=== PATIENT | male | born 1950 | race Two or more races ===

== ENCOUNTER 2021-01-26 13:16 | Inpatient (IN) | payer OTHER ==
[2021-01-26] MEDS ORDERED: ACETAMINOPHEN 1000 MG/100 ML VIAL (NON FORMULARY) IVPB ONE (13:43)
[2021-01-26] MEDS ORDERED: ACETAMINOPHEN INJECTION 100 ML IVPB ONE (14:27)
[2021-01-26 14:35] LABS: BASO % 0.2 % (0-2.0); EOS % 3.3 % (0-4.5); HEMATOCRIT 26.5 % (35.4-49); HEMOGLOBIN 8.5 GM/dL (11.7-16.9); LYMPH % 7.7 % (8-40); MCH 28.5 pg (25.7-33.7); MEAN CELL VOLUME 89.1 fl (80-96); MEAN PLT VOLUME 9.4 fl (7.5-11.1); MONO % 7.7 % (3.8-10.2); NEUT % 81.1 % (42.8-82.8); PLATELET COUNT 156 K/MM3 (134-434); RBC 2.98 M/mm3 (4.00-5.60); RDW 17.9 % (11.9-15.9); WHITE BLOOD COUNT 6.8 K/mm3 (4.0-10.0)
[2021-01-26 14:42] LABS: INR 1.12 (0.83-1.09); POTASSIUM 3.9 mmol/L (3.5-5.1); PROTHROMBIN TIME (PATIENT) 13.5 SEC (9.7-13.0)
[2021-01-26 14:44] LABS: ALBUMIN 2.6 g/dl (3.4-5.0); BLOOD UREA NITROGEN 47.7 mg/dL (7-18); CALCIUM 9.6 mg/dL (8.5-10.1)
[2021-01-26 14:45] LABS: ACTIVATED PTT 26.2 SECONDS (25.2-36.5)
[2021-01-26 14:49] LABS: BILIRUBIN,TOTAL 0.9 mg/dL (0.2-1); TOT PROT 6.2 g/dl (6.4-8.2)
[2021-01-26] MEDS ORDERED: ACETAMINOPHEN 650 MG/20.3 ML ORAL SOLUTION (CUPS) PO PRN (22:39)
[2021-01-27] MEDS ORDERED: POLYETHYLENE GLYCOL 3350 119 GM BTL GT PRN (01:07)
[2021-01-27] MEDS: ACETAMINOPHEN 650 MG/20.3 ML ORAL SOLUTION (CUPS) GT PRN (03:28)
[2021-01-27] MEDS: MIDODRINE HCL 5 MG TABLET GT SCH ×3 (06:10→22:44)
[2021-01-27] MEDS: BUDESONIDE 0.5 MG/2 ML INH SUSP VIAL NEB SCH (09:00)
[2021-01-27 09:35] LABS: BASO % 0.4 % (0-2.0); EOS % 4.4 % (0-4.5); HEMATOCRIT 23.8 % (35.4-49); MCH 29.4 pg (25.7-33.7); MCHC 33.5 g/dl (32.0-35.9); MEAN PLT VOLUME 9.6 fl (7.5-11.1); MONO % 8.3 % (3.8-10.2); NEUT % 76.9 % (42.8-82.8); PLATELET COUNT 145 K/MM3 (134-434); RBC 2.71 M/mm3 (4.00-5.60); RDW 17.8 % (11.9-15.9); WHITE BLOOD COUNT 5.5 K/mm3 (4.0-10.0)
[2021-01-27] MEDS ORDERED: ZINC SULFATE 220 MG CAPSULE (FP) GT SCH (10:00)
[2021-01-27] MEDS: ASPIRIN 81 MG CHEWABLE TABLETS GT SCH (11:20)
[2021-01-27 11:37] LABS: POTASSIUM 3.7 mmol/L (3.5-5.1)
[2021-01-27 11:44] LABS: CALCIUM 8.7 mg/dL (8.5-10.1)
[2021-01-27 11:45] LABS: ALBUMIN 2.3 g/dl (3.4-5.0); BLOOD UREA NITROGEN 54.7 mg/dL (7-18)
[2021-01-27 11:48] LABS: CREATININE 1.2 mg/dL (0.55-1.3)
[2021-01-27 11:49] LABS: TOT PROT 5.8 g/dl (6.4-8.2)
[2021-01-27] MEDS: METOPROLOL TARTRATE 25 MG TABLET (FP) GT SCH ×3 (11:54→23:06)
[2021-01-27] MEDS: FERROUS SO4 300 MG/5 ML ORAL SOLN UNIT DOSE CUPS GT SCH ×2 (11:58→22:42)
[2021-01-27] MEDS: TAMSULOSIN HCL 0.4 MG CAP NR SCH ×2 (11:59→12:06)
[2021-01-27] MEDS: Lacosamide 50 MG/5 ML ORAL SOLUTION UNIT CUPS GT SCH ×2 (12:02→22:43)
[2021-01-27] MEDS: ZINC SULFATE 220 MG CAPSULE (FP) GT SCH (12:15)
[2021-01-27] MEDS ORDERED: PATIENT'S OWN MEDICATION (NON-FORMULARY) (Carboxymethylcellulose Sodium [Refresh Plus] 1 E OP SCH (13:00)
[2021-01-27] MEDS ORDERED: guaiFENesin 200 MG/10 ML 10 ML UNIT-DOSE CUPS GT SCH (14:00)
[2021-01-27] MEDS ORDERED: SODIUM CHLORIDE 250 ML IV PRN (15:03)
[2021-01-27] MEDS: DOXAZOSIN MESYLATE 1 MG TABLET GT SCH (15:59)
[2021-01-27] MEDS: ALBUMIN HUMAN 25% 12.5 GM/50 ML VIAL IVPB SCH ×4 (16:00→17:30)
[2021-01-27] MEDS: guaiFENesin 200 MG/10 ML 10 ML UNIT-DOSE CUPS GT SCH ×2 (18:13→22:42)
[2021-01-27] MEDS: MINERAL OIL/PETROLATUM,WHITE 3.5 GM TUBE OU SCH ×2 (18:13→22:45)
[2021-01-27] MEDS ORDERED: LACOSAMIDE 200 MG GT SCH (22:00)
[2021-01-27] MEDS ORDERED: PT OWN MED DRAWER 7, Y5N ONE (22:38)
[2021-01-27] MEDS: ATORVASTATIN CA 80 MG TABLET (FP) GT SCH (22:44)
[2021-01-27] MEDS: SENNOSIDES 8.8 MG/5 ML BULK BOTTLE PO SCH (22:46)
[2021-01-27] MEDS: FAMOTIDINE 40 MG/5 ML ORAL SUSPENSION NR SCH (22:46)
[2021-01-28] MEDS: BUDESONIDE 0.5 MG/2 ML INH SUSP VIAL NEB SCH ×3 (02:20→22:00)
[2021-01-28] MEDS: MINERAL OIL/PETROLATUM,WHITE 3.5 GM TUBE OU SCH ×4 (04:13→23:16)
[2021-01-28] MEDS: ACETAMINOPHEN 650 MG/20.3 ML ORAL SOLUTION (CUPS) GT PRN (04:13)
[2021-01-28] MEDS: MIDODRINE HCL 5 MG TABLET GT SCH ×3 (05:44→23:17)
[2021-01-28] MEDS: METOPROLOL TARTRATE 25 MG TABLET (FP) GT SCH ×2 (09:31→23:17)
[2021-01-28] MEDS ORDERED: SODIUM CHLORIDE 250 ML IV STA (10:18)
[2021-01-28] MEDS: DOXAZOSIN MESYLATE 1 MG TABLET GT SCH ×2 (10:25→23:19)
[2021-01-28] MEDS: ZINC SULFATE 220 MG CAPSULE (FP) GT SCH (11:37)
[2021-01-28] MEDS: ASPIRIN 81 MG CHEWABLE TABLETS GT SCH (11:37)
[2021-01-28] MEDS: Lacosamide 50 MG/5 ML ORAL SOLUTION UNIT CUPS GT SCH ×2 (11:37→23:17)
[2021-01-28] MEDS: FERROUS SO4 300 MG/5 ML ORAL SOLN UNIT DOSE CUPS GT SCH ×2 (11:38→23:19)
[2021-01-28] MEDS: COLLAGENASE CLOSTRIDIUM HIST. 30 GRAMS TUBE TP SCH (11:46)
[2021-01-28] MEDS: guaiFENesin 200 MG/10 ML 10 ML UNIT-DOSE CUPS GT SCH (11:47)
[2021-01-28 12:56] LABS: HEMATOCRIT 24.4 % (35.4-49); HEMOGLOBIN 8.3 GM/dL (11.7-16.9); MCH 29.3 pg (25.7-33.7); MCHC 33.9 g/dl (32.0-35.9); MEAN CELL VOLUME 86.4 fl (80-96); MEAN PLT VOLUME 9.1 fl (7.5-11.1); PLATELET COUNT 146 K/MM3 (134-434); RBC 2.83 M/mm3 (4.00-5.60); RDW 17.9 % (11.9-15.9); WHITE BLOOD COUNT 5.8 K/mm3 (4.0-10.0)
[2021-01-28 13:20] LABS: POTASSIUM 3.5 mmol/L (3.5-5.1)
[2021-01-28 13:23] LABS: CALCIUM 8.9 mg/dL (8.5-10.1)
[2021-01-28 13:24] LABS: BLOOD UREA NITROGEN 37.5 mg/dL (7-18)
[2021-01-28] MEDS: FAMOTIDINE 40 MG/5 ML ORAL SUSPENSION NR SCH ×2 (14:15→23:18)
[2021-01-28] MEDS ORDERED: PT OWN MED DRAWER 7, Y5N ONE (23:15)
[2021-01-28] MEDS: ATORVASTATIN CA 80 MG TABLET (FP) GT SCH (23:17)
[2021-01-28] MEDS: SENNOSIDES 8.8 MG/5 ML BULK BOTTLE PO SCH (23:18)
[2021-01-29] MEDS: ACETAMINOPHEN 650 MG/20.3 ML ORAL SOLUTION (CUPS) GT PRN (03:32)
[2021-01-29] MEDS: MINERAL OIL/PETROLATUM,WHITE 3.5 GM TUBE OU SCH ×4 (03:33→22:53)
[2021-01-29] MEDS: MIDODRINE HCL 5 MG TABLET GT SCH ×3 (05:13→22:54)
[2021-01-29 08:57] LABS: BASO % 0.4 % (0-2.0); EOS % 3.7 % (0-4.5); HEMOGLOBIN 8.1 GM/dL (11.7-16.9); LYMPH % 12.2 % (8-40); MCH 29.5 pg (25.7-33.7); MCHC 33.7 g/dl (32.0-35.9); MEAN CELL VOLUME 87.6 fl (80-96); MEAN PLT VOLUME 9.8 fl (7.5-11.1); MONO % 10.8 % (3.8-10.2); NEUT % 72.9 % (42.8-82.8); PLATELET COUNT 133 K/MM3 (134-434); RBC 2.74 M/mm3 (4.00-5.60); RDW 17.5 % (11.9-15.9); WHITE BLOOD COUNT 5.8 K/mm3 (4.0-10.0)
[2021-01-29 09:23] LABS: POTASSIUM 3.5 mmol/L (3.5-5.1)
[2021-01-29 09:26] LABS: ALBUMIN 2.1 g/dl (3.4-5.0); BLOOD UREA NITROGEN 47.3 mg/dL (7-18); CALCIUM 8.8 mg/dL (8.5-10.1)
[2021-01-29 09:27] LABS: MAGNESIUM 2.1 mg/dL (1.8-2.4)
[2021-01-29 09:30] LABS: CREATININE 1.3 mg/dL (0.55-1.3); PHOSPHOROUS 3.3 mg/dL (2.5-4.9)
[2021-01-29 09:31] LABS: TOT PROT 5.7 g/dl (6.4-8.2)
[2021-01-29] MEDS ORDERED: FERROUS SULFATE 220 MG/5 ML ELIXIR GT SCH ×2 (10:00)
[2021-01-29] MEDS: BUDESONIDE 0.5 MG/2 ML INH SUSP VIAL NEB SCH ×2 (10:19→21:59)
[2021-01-29] MEDS ORDERED: INSULIN SLIDING SCALE (NOVOLOG) 1 VIAL SQ SCH ×2 (11:00)
[2021-01-29] MEDS: FERROUS SULFATE 220 MG/5 ML ELIXIR GT SCH ×2 (11:07→22:53)
[2021-01-29] MEDS ORDERED: PT OWN MED DRAWER 7, Y5N ONE ×2 (11:13→22:46)
[2021-01-29] MEDS: Lacosamide 50 MG/5 ML ORAL SOLUTION UNIT CUPS GT SCH ×2 (11:15→22:52)
[2021-01-29] MEDS: DOXAZOSIN MESYLATE 1 MG TABLET GT SCH ×2 (11:15→15:02)
[2021-01-29] MEDS: ASPIRIN 81 MG CHEWABLE TABLETS GT SCH (11:15)
[2021-01-29] MEDS: ZINC SULFATE 220 MG CAPSULE (FP) GT SCH (11:17)
[2021-01-29] MEDS: FAMOTIDINE 40 MG/5 ML ORAL SUSPENSION NR SCH ×2 (11:21→22:53)
[2021-01-29] MEDS: METOPROLOL TARTRATE 25 MG TABLET (FP) GT SCH ×2 (11:21→22:55)
[2021-01-29] MEDS: INSULIN SLIDING SCALE (NOVOLOG) 1 VIAL SQ SCH ×3 (11:26→22:59)
[2021-01-29] MEDS: COLLAGENASE CLOSTRIDIUM HIST. 30 GRAMS TUBE TP SCH (13:13)
[2021-01-29] MEDS ORDERED: SODIUM CHLORIDE 250 ML IV PRN (18:58)
[2021-01-29] MEDS: SENNOSIDES 8.8 MG/5 ML BULK BOTTLE PO SCH (22:52)
[2021-01-29] MEDS: ATORVASTATIN CA 80 MG TABLET (FP) GT SCH (22:53)
[2021-01-30] MEDS: MINERAL OIL/PETROLATUM,WHITE 3.5 GM TUBE OU SCH ×4 (04:17→23:12)
[2021-01-30] MEDS: MIDODRINE HCL 5 MG TABLET GT SCH ×3 (06:27→21:35)
[2021-01-30] MEDS: INSULIN SLIDING SCALE (NOVOLOG) 1 VIAL SQ SCH ×4 (06:28→21:37)
[2021-01-30 09:25] LABS: HEMOGLOBIN 8.3 GM/dL (11.7-16.9); MCH 29.2 pg (25.7-33.7); RBC 2.83 M/mm3 (4.00-5.60); RDW 17.8 % (11.9-15.9)
[2021-01-30 09:29] LABS: MCHC 33.1 g/dl (32.0-35.9); MEAN CELL VOLUME 88.1 fl (80-96); MEAN PLT VOLUME 9.3 fl (7.5-11.1); PLATELET COUNT 126 K/MM3 (134-434); WHITE BLOOD COUNT 6.8 K/mm3 (4.0-10.0)
[2021-01-30 09:30] LABS: POTASSIUM 3.6 mmol/L (3.5-5.1)
[2021-01-30 09:43] LABS: BILIRUBIN,TOTAL 0.7 mg/dL (0.2-1); TOT PROT 5.5 g/dl (6.4-8.2)
[2021-01-30 09:47] LABS: ALBUMIN 2.1 g/dl (3.4-5.0); BLOOD UREA NITROGEN 62.4 mg/dL (7-18)
[2021-01-30 09:48] LABS: CREATININE 1.7 mg/dL (0.55-1.3); MAGNESIUM 2.3 mg/dL (1.8-2.4)
[2021-01-30 09:51] LABS: PHOSPHOROUS 3.6 mg/dL (2.5-4.9)
[2021-01-30] MEDS: BUDESONIDE 0.5 MG/2 ML INH SUSP VIAL NEB SCH ×2 (11:00→22:03)
[2021-01-30] MEDS: Lacosamide 50 MG/5 ML ORAL SOLUTION UNIT CUPS GT SCH ×2 (11:10→21:33)
[2021-01-30] MEDS: INSULIN (LEVEMIR) 100 UNITS/ML UNITS SQ SCH ×2 (11:10→21:36)
[2021-01-30] MEDS: ZINC SULFATE 220 MG CAPSULE (FP) GT SCH (11:12)
[2021-01-30] MEDS: ASPIRIN 81 MG CHEWABLE TABLETS GT SCH (11:12)
[2021-01-30] MEDS: METOPROLOL TARTRATE 25 MG TABLET (FP) GT SCH ×2 (11:12→23:07)
[2021-01-30] MEDS: FERROUS SULFATE 220 MG/5 ML ELIXIR GT SCH ×2 (11:14→22:55)
[2021-01-30] MEDS: FAMOTIDINE 40 MG/5 ML ORAL SUSPENSION NR SCH ×2 (11:14→21:33)
[2021-01-30] MEDS: COLLAGENASE CLOSTRIDIUM HIST. 30 GRAMS TUBE TP SCH (11:14)
[2021-01-30] MEDS ORDERED: INSULIN (NOVOLOG) ASPART 100 UNITS/ML 10ML VIAL ONE (11:18)
[2021-01-30] MEDS ORDERED: INSULIN (LEVEMIR) 100 UNITS/ML UNITS SQ ONE (11:53)
[2021-01-30] MEDS ORDERED: EPOETIN ALFA-EPBX 4,000 UNIT/ML VIAL IVPUSH ONE (14:00)
[2021-01-30] MEDS ORDERED: PT OWN MED DRAWER 7, Y5N ONE ×3 (19:55→23:23)
[2021-01-30] MEDS ORDERED: ATORVASTATIN CA 40 MG TABLET (FP) ONE (21:21)
[2021-01-30] MEDS: ATORVASTATIN CA 80 MG TABLET (FP) GT SCH (21:33)
[2021-01-30] MEDS: SENNOSIDES 8.8 MG/5 ML BULK BOTTLE PO SCH (22:55)
[2021-01-31] MEDS: MINERAL OIL/PETROLATUM,WHITE 3.5 GM TUBE OU SCH ×4 (04:35→22:08)
[2021-01-31] MEDS: MIDODRINE HCL 5 MG TABLET GT SCH ×3 (05:42→22:10)
[2021-01-31] MEDS: INSULIN (LEVEMIR) 100 UNITS/ML UNITS SQ SCH ×2 (06:39→21:59)
[2021-01-31] MEDS: INSULIN SLIDING SCALE (NOVOLOG) 1 VIAL SQ SCH ×4 (06:41→21:58)
[2021-01-31 09:19] LABS: HEMATOCRIT 24.6 % (35.4-49); HEMOGLOBIN 8.1 GM/dL (11.7-16.9); MCH 28.9 pg (25.7-33.7); MCHC 32.9 g/dl (32.0-35.9); MEAN CELL VOLUME 87.8 fl (80-96); MEAN PLT VOLUME 9.3 fl (7.5-11.1); PLATELET COUNT 123 K/MM3 (134-434); RDW 17.9 % (11.9-15.9); WHITE BLOOD COUNT 5.4 K/mm3 (4.0-10.0)
[2021-01-31 09:44] LABS: POTASSIUM 3.1 mmol/L (3.5-5.1)
[2021-01-31] MEDS: BUDESONIDE 0.5 MG/2 ML INH SUSP VIAL NEB SCH ×2 (09:59→21:03)
[2021-01-31 10:02] LABS: ALBUMIN 2.3 g/dl (3.4-5.0); CALCIUM 8.9 mg/dL (8.5-10.1); MAGNESIUM 2.1 mg/dL (1.8-2.4)
[2021-01-31 10:06] LABS: CREATININE 1.1 mg/dL (0.55-1.3); PHOSPHOROUS 2.6 mg/dL (2.5-4.9)
[2021-01-31 10:07] LABS: TOT PROT 5.8 g/dl (6.4-8.2)
[2021-01-31 10:08] LABS: BLOOD UREA NITROGEN 35.6 mg/dL (7-18)
[2021-01-31] MEDS ORDERED: PT OWN MED DRAWER 7, Y5N ONE ×2 (10:56→23:10)
[2021-01-31] MEDS: ASPIRIN 81 MG CHEWABLE TABLETS GT SCH (11:00)
[2021-01-31] MEDS: ARTIFICIAL TEARS (POLYVINYL ALCOHOL) OPTH DROPS OU PRN (11:00)
[2021-01-31] MEDS: Lacosamide 50 MG/5 ML ORAL SOLUTION UNIT CUPS GT SCH ×2 (11:00→22:11)
[2021-01-31] MEDS: METOPROLOL TARTRATE 25 MG TABLET (FP) GT SCH ×2 (11:00→22:09)
[2021-01-31] MEDS: ZINC SULFATE 220 MG CAPSULE (FP) GT SCH (11:01)
[2021-01-31] MEDS: DOXAZOSIN MESYLATE 1 MG TABLET GT SCH (11:01)
[2021-01-31] MEDS: FAMOTIDINE 40 MG/5 ML ORAL SUSPENSION NR SCH ×2 (11:02→22:09)
[2021-01-31] MEDS: COLLAGENASE CLOSTRIDIUM HIST. 30 GRAMS TUBE TP SCH (11:02)
[2021-01-31] MEDS: FERROUS SULFATE 220 MG/5 ML ELIXIR GT SCH ×2 (11:02→22:08)
[2021-01-31 15:06] VITALS: BMI 31.9
[2021-01-31] MEDS: ATORVASTATIN CA 80 MG TABLET (FP) GT SCH (22:09)
[2021-01-31] MEDS: SENNOSIDES 8.8 MG/5 ML BULK BOTTLE PO SCH (22:10)
[2021-02-01] MEDS: MINERAL OIL/PETROLATUM,WHITE 3.5 GM TUBE OU SCH ×4 (04:50→21:39)
[2021-02-01] MEDS: MIDODRINE HCL 5 MG TABLET GT SCH ×3 (05:32→21:38)
[2021-02-01] MEDS: INSULIN (LEVEMIR) 100 UNITS/ML UNITS SQ SCH ×2 (06:49→21:42)
[2021-02-01] MEDS: INSULIN SLIDING SCALE (NOVOLOG) 1 VIAL SQ SCH ×4 (06:50→21:42)
[2021-02-01] MEDS ORDERED: INSULIN (NOVOLOG) ASPART 100 UNITS/ML 10ML VIAL ONE ×3 (07:02→21:37)
[2021-02-01 08:46] LABS: HEMATOCRIT 24.9 % (35.4-49); MCH 28.6 pg (25.7-33.7); MCHC 32.2 g/dl (32.0-35.9); MEAN PLT VOLUME 9.9 fl (7.5-11.1); PLATELET COUNT 123 K/MM3 (134-434); RDW 17.9 % (11.9-15.9); WHITE BLOOD COUNT 5.2 K/mm3 (4.0-10.0)
[2021-02-01] MEDS ORDERED: FUROSEMIDE 40 MG/4 ML INJECTABLE VIAL IVPUSH ONE (09:00)
[2021-02-01] MEDS ORDERED: EPOETIN ALFA-EPBX 4,000 UNIT/ML VIAL IVPUSH ONE (09:00)
[2021-02-01] MEDS ORDERED: SODIUM CHLORIDE 250 ML IV PRN (09:00)
[2021-02-01 09:03] LABS: POTASSIUM 3.3 mmol/L (3.5-5.1)
[2021-02-01 09:11] LABS: ALBUMIN 2.2 g/dl (3.4-5.0); BLOOD UREA NITROGEN 54.6 mg/dL (7-18); CALCIUM 8.9 mg/dL (8.5-10.1); CREATININE 1.5 mg/dL (0.55-1.3); MAGNESIUM 2.2 mg/dL (1.8-2.4)
[2021-02-01 09:12] LABS: BILIRUBIN,TOTAL 0.6 mg/dL (0.2-1); PHOSPHOROUS 2.8 mg/dL (2.5-4.9); TOT PROT 5.7 g/dl (6.4-8.2)
[2021-02-01] MEDS ORDERED: PT OWN MED DRAWER 7, Y5N ONE ×2 (10:05→15:17)
[2021-02-01] MEDS: Lacosamide 50 MG/5 ML ORAL SOLUTION UNIT CUPS GT SCH ×2 (10:24→21:38)
[2021-02-01] MEDS: AMINO ACIDS/PROTEIN HYDROLYS 30 ML LIQUID.PKT PEG SCH (10:24)
[2021-02-01] MEDS: ASPIRIN 81 MG CHEWABLE TABLETS GT SCH (10:25)
[2021-02-01] MEDS: FERROUS SULFATE 220 MG/5 ML ELIXIR GT SCH ×2 (10:25→21:42)
[2021-02-01] MEDS: FAMOTIDINE 40 MG/5 ML ORAL SUSPENSION NR SCH ×2 (10:26→21:39)
[2021-02-01] MEDS: COLLAGENASE CLOSTRIDIUM HIST. 30 GRAMS TUBE TP SCH (10:28)
[2021-02-01] MEDS: ARTIFICIAL TEARS (POLYVINYL ALCOHOL) OPTH DROPS OU PRN (10:28)
[2021-02-01] MEDS: METOPROLOL TARTRATE 25 MG TABLET (FP) GT SCH ×2 (12:49→21:39)
[2021-02-01] MEDS: DOXAZOSIN MESYLATE 1 MG TABLET GT SCH (12:49)
[2021-02-01] MEDS: BUDESONIDE 0.5 MG/2 ML INH SUSP VIAL NEB SCH ×2 (15:00→21:00)
[2021-02-01 15:13] LABS: ARTERIAL BLOOD GAS BASE EXCESS 4.8 mmol/L (-2-2); ARTERIAL BLOOD GAS PO2 73.6 mmHg (80-100); ARTERIAL BLOOD GAS pH 7.449 (7.350-7.450)
[2021-02-01 15:17] LABS: HEP B CORE AB, TOT Negative (Negative)
[2021-02-01 15:18] LABS: ALLENS TEST POSITIVE; ARTERIAL BLD GAS O2 SATURATION 95.7 mmHg (95-98)
[2021-02-01] MEDS: ZINC SULFATE 220 MG CAPSULE (FP) GT SCH (17:30)
[2021-02-01] MEDS: SCOPOLAMINE HYDROBROMIDE 1 PATCH PATCH.TD72 TD SCH (18:00)
[2021-02-01] MEDS: ACETAMINOPHEN 650 MG/20.3 ML ORAL SOLUTION (CUPS) GT PRN (18:00)
[2021-02-01] MEDS ORDERED: POTASSIUM CHLORIDE ORAL LIQUID 20 MEQ/15 ML GT ONE (19:50)
[2021-02-01] MEDS: ATORVASTATIN CA 80 MG TABLET (FP) GT SCH (21:38)
[2021-02-01] MEDS: SENNOSIDES 8.8 MG/5 ML BULK BOTTLE PO SCH (21:39)
[2021-02-02] MEDS: MINERAL OIL/PETROLATUM,WHITE 3.5 GM TUBE OU SCH ×4 (04:53→22:01)
[2021-02-02] MEDS: MIDODRINE HCL 5 MG TABLET GT SCH ×3 (05:53→22:22)
[2021-02-02] MEDS: INSULIN (LEVEMIR) 100 UNITS/ML UNITS SQ SCH ×2 (06:01→22:23)
[2021-02-02] MEDS: INSULIN SLIDING SCALE (NOVOLOG) 1 VIAL SQ SCH ×4 (06:02→22:22)
[2021-02-02] MEDS ORDERED: INSULIN (LEVEMIR) 100 UNITS/ML UNITS SQ ONE (07:15)
[2021-02-02] MEDS: BUDESONIDE 0.5 MG/2 ML INH SUSP VIAL NEB SCH ×2 (09:05→22:00)
[2021-02-02 09:10] LABS: HEMATOCRIT 25.4 % (35.4-49); HEMOGLOBIN 8.4 GM/dL (11.7-16.9); MCH 28.8 pg (25.7-33.7); MCHC 32.9 g/dl (32.0-35.9); MEAN CELL VOLUME 87.4 fl (80-96); MEAN PLT VOLUME 9.4 fl (7.5-11.1); PLATELET COUNT 119 K/MM3 (134-434); RBC 2.91 M/mm3 (4.00-5.60); RDW 17.9 % (11.9-15.9); WHITE BLOOD COUNT 5.9 K/mm3 (4.0-10.0)
[2021-02-02 09:23] LABS: POTASSIUM 3.7 mmol/L (3.5-5.1)
[2021-02-02 09:28] LABS: ALBUMIN 2.2 g/dl (3.4-5.0); CALCIUM 8.8 mg/dL (8.5-10.1)
[2021-02-02 09:31] LABS: CREATININE 1.2 mg/dL (0.55-1.3); PHOSPHOROUS 2.1 mg/dL (2.5-4.9)
[2021-02-02 09:33] LABS: BILIRUBIN,TOTAL 0.7 mg/dL (0.2-1)
[2021-02-02] MEDS: ZINC SULFATE 220 MG CAPSULE (FP) GT SCH (09:57)
[2021-02-02] MEDS: FERROUS SULFATE 220 MG/5 ML ELIXIR GT SCH ×2 (09:57→22:01)
[2021-02-02] MEDS: ASPIRIN 81 MG CHEWABLE TABLETS GT SCH (09:57)
[2021-02-02] MEDS: AMINO ACIDS/PROTEIN HYDROLYS 30 ML LIQUID.PKT PEG SCH (09:58)
[2021-02-02] MEDS: FAMOTIDINE 40 MG/5 ML ORAL SUSPENSION NR SCH ×2 (09:59→22:01)
[2021-02-02] MEDS: Lacosamide 50 MG/5 ML ORAL SOLUTION UNIT CUPS GT SCH ×2 (09:59→22:02)
[2021-02-02] MEDS: ARTIFICIAL TEARS (POLYVINYL ALCOHOL) OPTH DROPS OU PRN (10:00)
[2021-02-02] MEDS: METOPROLOL TARTRATE 25 MG TABLET (FP) GT SCH ×2 (10:05→22:00)
[2021-02-02] MEDS ORDERED: SODIUM CHLORIDE 250 ML IV PRN (11:51)
[2021-02-02 19:53] LABS: EPI CELLS >36 /uL (0-25.1); HYALINE CASTS 139 /uL (0-3.1); PH,URINE 6.5 (5.0-8.0); URINE APPEARANCE TURBID; URINE BACTERIA 138 /uL (0-1359); URINE BILIRUBIN NEGATIVE (NEGATIVE); URINE COLOR DK YELLOW; URINE GLUCOSE (UA) NEGATIVE (NEGATIVE); URINE KETONE NEGATIVE (NEGATIVE); URINE LEUK ESTERASE 3+ (NEGATIVE); URINE NITRITE NEGATIVE (NEGATIVE); URINE PROTEIN 3+ (NEGATIVE); URINE RBC 16 /uL (0-23.9); URINE UROBILINOGEN 0.2 mg/dL (0.2-1.0); URINE WBC 3775 /uL (0-25.8)
[2021-02-02] MEDS: ATORVASTATIN CA 80 MG TABLET (FP) GT SCH (22:00)
[2021-02-02] MEDS: SENNOSIDES 8.8 MG/5 ML BULK BOTTLE PO SCH (22:00)
[2021-02-02] MEDS ORDERED: PT OWN MED DRAWER 7, Y5N ONE (23:35)
[2021-02-03] MEDS: MINERAL OIL/PETROLATUM,WHITE 3.5 GM TUBE OU SCH ×4 (03:59→22:57)
[2021-02-03] MEDS ORDERED: PT OWN MED DRAWER 7, Y5N ONE ×5 (05:14→23:01)
[2021-02-03] MEDS: MIDODRINE HCL 5 MG TABLET GT SCH ×3 (05:23→22:59)
[2021-02-03] MEDS: INSULIN (LEVEMIR) 100 UNITS/ML UNITS SQ SCH ×2 (06:32→23:05)
[2021-02-03] MEDS: INSULIN SLIDING SCALE (NOVOLOG) 1 VIAL SQ SCH ×4 (06:33→23:05)
[2021-02-03] MEDS ORDERED: EPOETIN ALFA-EPBX 4,000 UNIT/ML VIAL IVPUSH ONE (08:00)
[2021-02-03] MEDS: COLLAGENASE CLOSTRIDIUM HIST. 30 GRAMS TUBE TP SCH ×2 (09:09→11:25)
[2021-02-03 09:28] LABS: HEMATOCRIT 24.4 % (35.4-49); HEMOGLOBIN 7.9 GM/dL (11.7-16.9); MCH 28.4 pg (25.7-33.7); MCHC 32.3 g/dl (32.0-35.9); MEAN CELL VOLUME 87.9 fl (80-96); MEAN PLT VOLUME 10.3 fl (7.5-11.1); PLATELET COUNT 118 K/MM3 (134-434); RBC 2.77 M/mm3 (4.00-5.60); RDW 17.7 % (11.9-15.9); WHITE BLOOD COUNT 5.1 K/mm3 (4.0-10.0)
[2021-02-03 09:41] LABS: POTASSIUM 3.8 mmol/L (3.5-5.1)
[2021-02-03 09:51] LABS: CALCIUM 8.6 mg/dL (8.5-10.1)
[2021-02-03 09:52] LABS: ALBUMIN 2.1 g/dl (3.4-5.0); BLOOD UREA NITROGEN 66.5 mg/dL (7-18); MAGNESIUM 2.2 mg/dL (1.8-2.4)
[2021-02-03 09:54] LABS: CREATININE 1.5 mg/dL (0.55-1.3); PHOSPHOROUS 2.8 mg/dL (2.5-4.9)
[2021-02-03 09:55] LABS: TOT PROT 5.7 g/dl (6.4-8.2)
[2021-02-03] MEDS: BUDESONIDE 0.5 MG/2 ML INH SUSP VIAL NEB SCH ×2 (10:00→22:57)
[2021-02-03] MEDS ORDERED: CEFTRIAXONE 1,000 MG in DEXTROSE 5%-WATER - 50 ML IVPB SCH (10:00)
[2021-02-03] MEDS: FERROUS SULFATE 220 MG/5 ML ELIXIR GT SCH ×2 (12:06→22:57)
[2021-02-03] MEDS: AMINO ACIDS/PROTEIN HYDROLYS 30 ML LIQUID.PKT PEG SCH (12:06)
[2021-02-03] MEDS: METOPROLOL TARTRATE 25 MG TABLET (FP) GT SCH ×2 (12:07→22:58)
[2021-02-03] MEDS: ASPIRIN 81 MG CHEWABLE TABLETS GT SCH (12:07)
[2021-02-03] MEDS: ZINC SULFATE 220 MG CAPSULE (FP) GT SCH (12:07)
[2021-02-03] MEDS: Lacosamide 50 MG/5 ML ORAL SOLUTION UNIT CUPS GT SCH ×2 (12:08→22:58)
[2021-02-03] MEDS: FAMOTIDINE 40 MG/5 ML ORAL SUSPENSION NR SCH ×2 (12:08→23:06)
[2021-02-03] MEDS: SENNOSIDES 8.8 MG/5 ML BULK BOTTLE PO SCH (22:57)
[2021-02-03] MEDS: ATORVASTATIN CA 80 MG TABLET (FP) GT SCH (22:58)
[2021-02-04] MEDS: MINERAL OIL/PETROLATUM,WHITE 3.5 GM TUBE OU SCH ×4 (04:57→21:42)
[2021-02-04] MEDS: MIDODRINE HCL 5 MG TABLET GT SCH ×3 (05:54→21:38)
[2021-02-04] MEDS: INSULIN SLIDING SCALE (NOVOLOG) 1 VIAL SQ SCH ×4 (06:10→22:05)
[2021-02-04] MEDS: INSULIN (LEVEMIR) 100 UNITS/ML UNITS SQ SCH ×2 (06:12→22:04)
[2021-02-04] MEDS: BUDESONIDE 0.5 MG/2 ML INH SUSP VIAL NEB SCH ×2 (08:29→20:00)
[2021-02-04 08:45] LABS: HEMATOCRIT 25.1 % (35.4-49); HEMOGLOBIN 8.1 GM/dL (11.7-16.9); MCH 28.5 pg (25.7-33.7); MCHC 32.3 g/dl (32.0-35.9); PLATELET COUNT 121 K/MM3 (134-434); RBC 2.86 M/mm3 (4.00-5.60); RDW 17.6 % (11.9-15.9); WHITE BLOOD COUNT 5.6 K/mm3 (4.0-10.0)
[2021-02-04 09:09] LABS: POTASSIUM 3.8 mmol/L (3.5-5.1)
[2021-02-04 09:11] LABS: CALCIUM 8.7 mg/dL (8.5-10.1)
[2021-02-04 09:12] LABS: ALBUMIN 2.1 g/dl (3.4-5.0); BLOOD UREA NITROGEN 46.8 mg/dL (7-18)
[2021-02-04 09:15] LABS: CREATININE 1.2 mg/dL (0.55-1.3)
[2021-02-04 09:17] LABS: BILIRUBIN,TOTAL 0.8 mg/dL (0.2-1); TOT PROT 5.9 g/dl (6.4-8.2)
[2021-02-04] MEDS ORDERED: PT OWN MED DRAWER 7, Y5N ONE ×2 (10:26→21:31)
[2021-02-04] MEDS: ZINC SULFATE 220 MG CAPSULE (FP) GT SCH (10:35)
[2021-02-04] MEDS: METOPROLOL TARTRATE 25 MG TABLET (FP) GT SCH ×2 (10:35→21:39)
[2021-02-04] MEDS: AMINO ACIDS/PROTEIN HYDROLYS 30 ML LIQUID.PKT PEG SCH (10:35)
[2021-02-04] MEDS: ASPIRIN 81 MG CHEWABLE TABLETS GT SCH (10:35)
[2021-02-04] MEDS: FERROUS SULFATE 220 MG/5 ML ELIXIR GT SCH ×2 (10:36→21:40)
[2021-02-04] MEDS: FAMOTIDINE 40 MG/5 ML ORAL SUSPENSION NR SCH ×2 (10:36→21:40)
[2021-02-04] MEDS: Lacosamide 50 MG/5 ML ORAL SOLUTION UNIT CUPS GT SCH ×2 (10:36→21:38)
[2021-02-04] MEDS: COLLAGENASE CLOSTRIDIUM HIST. 30 GRAMS TUBE TP SCH (10:37)
[2021-02-04] MEDS: ARTIFICIAL TEARS (POLYVINYL ALCOHOL) OPTH DROPS OU PRN (10:37)
[2021-02-04] MEDS: SCOPOLAMINE HYDROBROMIDE 1 PATCH PATCH.TD72 TD SCH (16:14)
[2021-02-04] MEDS: ATORVASTATIN CA 80 MG TABLET (FP) GT SCH (21:39)
[2021-02-04] MEDS: SENNOSIDES 8.8 MG/5 ML BULK BOTTLE PO SCH (21:40)
[2021-02-05] MEDS: MINERAL OIL/PETROLATUM,WHITE 3.5 GM TUBE OU SCH ×4 (05:16→21:55)
[2021-02-05] MEDS: INSULIN SLIDING SCALE (NOVOLOG) 1 VIAL SQ SCH ×4 (07:03→21:59)
[2021-02-05] MEDS: INSULIN (LEVEMIR) 100 UNITS/ML UNITS SQ SCH ×2 (07:04→22:01)
[2021-02-05] MEDS: MIDODRINE HCL 5 MG TABLET GT SCH ×3 (07:05→21:56)
[2021-02-05] MEDS: BUDESONIDE 0.5 MG/2 ML INH SUSP VIAL NEB SCH ×2 (08:56→20:30)
[2021-02-05] MEDS: METOPROLOL TARTRATE 25 MG TABLET (FP) GT SCH ×2 (10:31→21:57)
[2021-02-05] MEDS: AMINO ACIDS/PROTEIN HYDROLYS 30 ML LIQUID.PKT PEG SCH (10:31)
[2021-02-05] MEDS: ASPIRIN 81 MG CHEWABLE TABLETS GT SCH (10:31)
[2021-02-05] MEDS: FERROUS SULFATE 220 MG/5 ML ELIXIR GT SCH ×2 (10:32→21:55)
[2021-02-05] MEDS: ZINC SULFATE 220 MG CAPSULE (FP) GT SCH (10:32)
[2021-02-05] MEDS: COLLAGENASE CLOSTRIDIUM HIST. 30 GRAMS TUBE TP SCH (10:33)
[2021-02-05] MEDS: FAMOTIDINE 40 MG/5 ML ORAL SUSPENSION NR SCH ×2 (10:33→21:57)
[2021-02-05] MEDS: Lacosamide 50 MG/5 ML ORAL SOLUTION UNIT CUPS GT SCH ×2 (10:34→22:04)
[2021-02-05] MEDS ORDERED: AZTREONAM 1 GM VIAL (RESTRICTED TO ID) ONE ×2 (15:21→18:59)
[2021-02-05] MEDS ORDERED: DEXTROSE 5%-WATER - 50 ML IVPB ONE ×2 (15:21→18:59)
[2021-02-05] MEDS: AZTREONAM 1 GM in DEXTROSE 5%-WATER - 50 ML IVPB SCH ×2 (15:23→19:00)
[2021-02-05] MEDS ORDERED: PT OWN MED DRAWER 7, Y5N ONE (21:51)
[2021-02-05] MEDS: ATORVASTATIN CA 80 MG TABLET (FP) GT SCH (21:55)
[2021-02-05] MEDS: SENNOSIDES 8.8 MG/5 ML BULK BOTTLE PO SCH (22:02)
[2021-02-06] MEDS ORDERED: AZTREONAM 1 GM VIAL (RESTRICTED TO ID) ONE ×4 (02:42→17:12)
[2021-02-06] MEDS ORDERED: DEXTROSE 5%-WATER - 50 ML IVPB ONE ×4 (02:43→17:12)
[2021-02-06] MEDS: AZTREONAM 1 GM in DEXTROSE 5%-WATER - 50 ML IVPB SCH ×3 (03:09→20:14)
[2021-02-06] MEDS: MINERAL OIL/PETROLATUM,WHITE 3.5 GM TUBE OU SCH ×3 (03:17→17:52)
[2021-02-06] MEDS: INSULIN SLIDING SCALE (NOVOLOG) 1 VIAL SQ SCH ×3 (06:27→17:52)
[2021-02-06] MEDS: INSULIN (LEVEMIR) 100 UNITS/ML UNITS SQ SCH (06:28)
[2021-02-06] MEDS: MIDODRINE HCL 5 MG TABLET GT SCH ×2 (06:30→13:02)
[2021-02-06] MEDS ORDERED: PT OWN MED DRAWER 7, Y5N ONE ×3 (08:39→18:14)
[2021-02-06] MEDS: BUDESONIDE 0.5 MG/2 ML INH SUSP VIAL NEB SCH ×2 (08:54→20:40)
[2021-02-06] MEDS: METOPROLOL TARTRATE 25 MG TABLET (FP) GT SCH (09:06)
[2021-02-06] MEDS: AMINO ACIDS/PROTEIN HYDROLYS 30 ML LIQUID.PKT PEG SCH (09:06)
[2021-02-06] MEDS: ZINC SULFATE 220 MG CAPSULE (FP) GT SCH (09:06)
[2021-02-06] MEDS: ASPIRIN 81 MG CHEWABLE TABLETS GT SCH (09:06)
[2021-02-06] MEDS: Lacosamide 50 MG/5 ML ORAL SOLUTION UNIT CUPS GT SCH (09:10)
[2021-02-06 09:24] LABS: HEMATOCRIT 25.5 % (35.4-49); HEMOGLOBIN 8.3 GM/dL (11.7-16.9); MCH 28.3 pg (25.7-33.7); MCHC 32.7 g/dl (32.0-35.9); MEAN CELL VOLUME 86.5 fl (80-96); MEAN PLT VOLUME 10.1 fl (7.5-11.1); PLATELET COUNT 144 K/MM3 (134-434); RBC 2.95 M/mm3 (4.00-5.60); RDW 17.3 % (11.9-15.9); WHITE BLOOD COUNT 5.3 K/mm3 (4.0-10.0)
[2021-02-06 09:38] LABS: POTASSIUM 4.3 mmol/L (3.5-5.1)
[2021-02-06] MEDS: FERROUS SULFATE 220 MG/5 ML ELIXIR GT SCH (10:00)
[2021-02-06] MEDS: FAMOTIDINE 40 MG/5 ML ORAL SUSPENSION NR SCH (10:00)
[2021-02-06] MEDS: COLLAGENASE CLOSTRIDIUM HIST. 30 GRAMS TUBE TP SCH (10:01)
[2021-02-06 10:03] LABS: BILIRUBIN,TOTAL 0.5 mg/dL (0.2-1); MAGNESIUM 2.1 mg/dL (1.8-2.4); TOT PROT 5.8 g/dl (6.4-8.2)
[2021-02-06 10:05] LABS: CREATININE 1.7 mg/dL (0.55-1.3); PHOSPHOROUS 3.1 mg/dL (2.5-4.9)
[2021-02-06 10:14] LABS: BLOOD UREA NITROGEN 93.3 mg/dL (7-18)
[2021-02-07] MEDS ORDERED: PT OWN MED DRAWER 7, Y5N ONE ×3 (00:02→21:02)
[2021-02-07] MEDS: MIDODRINE HCL 5 MG TABLET GT SCH ×4 (00:05→21:11)
[2021-02-07] MEDS: METOPROLOL TARTRATE 25 MG TABLET (FP) GT SCH ×3 (00:08→21:10)
[2021-02-07] MEDS: ATORVASTATIN CA 80 MG TABLET (FP) GT SCH ×2 (00:09→21:12)
[2021-02-07] MEDS: SENNOSIDES 8.8 MG/5 ML BULK BOTTLE PO SCH ×2 (00:10→21:11)
[2021-02-07] MEDS: FAMOTIDINE 40 MG/5 ML ORAL SUSPENSION NR SCH ×3 (00:11→21:12)
[2021-02-07] MEDS: FERROUS SULFATE 220 MG/5 ML ELIXIR GT SCH ×3 (00:11→21:12)
[2021-02-07] MEDS: Lacosamide 50 MG/5 ML ORAL SOLUTION UNIT CUPS GT SCH ×3 (00:12→21:09)
[2021-02-07] MEDS: INSULIN (LEVEMIR) 100 UNITS/ML UNITS SQ SCH ×3 (00:16→21:17)
[2021-02-07] MEDS: INSULIN SLIDING SCALE (NOVOLOG) 1 VIAL SQ SCH ×5 (00:17→21:15)
[2021-02-07] MEDS: MINERAL OIL/PETROLATUM,WHITE 3.5 GM TUBE OU SCH ×5 (00:18→21:17)
[2021-02-07] MEDS ORDERED: AZTREONAM 1 GM VIAL (RESTRICTED TO ID) ONE ×3 (01:35→17:24)
[2021-02-07] MEDS ORDERED: DEXTROSE 5%-WATER - 50 ML IVPB ONE ×3 (01:36→17:25)
[2021-02-07] MEDS: AZTREONAM 1 GM in DEXTROSE 5%-WATER - 50 ML IVPB SCH ×3 (01:36→17:32)
[2021-02-07] MEDS: BUDESONIDE 0.5 MG/2 ML INH SUSP VIAL NEB SCH ×2 (08:05→20:07)
[2021-02-07 08:30] LABS: HEMATOCRIT 27.3 % (35.4-49); HEMOGLOBIN 8.9 GM/dL (11.7-16.9); MCH 28.2 pg (25.7-33.7); MCHC 32.7 g/dl (32.0-35.9); MEAN CELL VOLUME 86.1 fl (80-96); MEAN PLT VOLUME 10.2 fl (7.5-11.1); PLATELET COUNT 160 K/MM3 (134-434); RBC 3.17 M/mm3 (4.00-5.60); RDW 17.1 % (11.9-15.9); WHITE BLOOD COUNT 5.5 K/mm3 (4.0-10.0)
[2021-02-07 08:42] LABS: POTASSIUM 3.7 mmol/L (3.5-5.1)
[2021-02-07 08:46] LABS: CALCIUM 9.1 mg/dL (8.5-10.1)
[2021-02-07 08:47] LABS: ALBUMIN 2.1 g/dl (3.4-5.0); MAGNESIUM 2.2 mg/dL (1.8-2.4)
[2021-02-07 08:50] LABS: CREATININE 1.2 mg/dL (0.55-1.3); PHOSPHOROUS 2.3 mg/dL (2.5-4.9)
[2021-02-07 08:51] LABS: BILIRUBIN,TOTAL 0.6 mg/dL (0.2-1); TOT PROT 6.2 g/dl (6.4-8.2)
[2021-02-07 08:56] LABS: BLOOD UREA NITROGEN 51.7 mg/dL (7-18)
[2021-02-07] MEDS: ZINC SULFATE 220 MG CAPSULE (FP) GT SCH (10:44)
[2021-02-07] MEDS: AMINO ACIDS/PROTEIN HYDROLYS 30 ML LIQUID.PKT PEG SCH (10:44)
[2021-02-07] MEDS: ASPIRIN 81 MG CHEWABLE TABLETS GT SCH (10:47)
[2021-02-07] MEDS: COLLAGENASE CLOSTRIDIUM HIST. 30 GRAMS TUBE TP SCH (12:56)
[2021-02-07] MEDS: SCOPOLAMINE HYDROBROMIDE 1 PATCH PATCH.TD72 TD SCH (16:20)
[2021-02-07] MEDS ORDERED: SODIUM CHLORIDE 250 ML IV PRN (17:04)
[2021-02-07] MEDS ORDERED: INSULIN (LEVEMIR) 100 UNITS/ML UNITS SQ ONE (21:00)
[2021-02-08] MEDS ORDERED: DEXTROSE 5%-WATER - 50 ML IVPB ONE ×3 (00:30→18:18)
[2021-02-08] MEDS ORDERED: AZTREONAM 1 GM VIAL (RESTRICTED TO ID) ONE ×3 (00:30→18:18)
[2021-02-08] MEDS: AZTREONAM 1 GM in DEXTROSE 5%-WATER - 50 ML IVPB SCH ×3 (02:19→18:24)
[2021-02-08] MEDS ORDERED: PT OWN MED DRAWER 7, Y5N ONE ×4 (05:50→21:52)
[2021-02-08] MEDS: MINERAL OIL/PETROLATUM,WHITE 3.5 GM TUBE OU SCH ×4 (06:06→21:55)
[2021-02-08] MEDS: MIDODRINE HCL 5 MG TABLET GT SCH ×3 (06:39→21:54)
[2021-02-08] MEDS: INSULIN (LEVEMIR) 100 UNITS/ML UNITS SQ SCH ×2 (06:45→22:08)
[2021-02-08] MEDS: INSULIN SLIDING SCALE (NOVOLOG) 1 VIAL SQ SCH ×4 (06:47→22:10)
[2021-02-08] MEDS: BUDESONIDE 0.5 MG/2 ML INH SUSP VIAL NEB SCH ×2 (07:35→20:01)
[2021-02-08] MEDS ORDERED: SODIUM CHLORIDE 250 ML IV PRN (08:00)
[2021-02-08] MEDS ORDERED: EPOETIN ALFA-EPBX 4,000 UNIT/ML VIAL IVPUSH ONE (08:00)
[2021-02-08 09:58] LABS: HEMATOCRIT 25.1 % (35.4-49); HEMOGLOBIN 8.1 GM/dL (11.7-16.9); MCHC 32.1 g/dl (32.0-35.9); MEAN CELL VOLUME 87.1 fl (80-96); MEAN PLT VOLUME 10.6 fl (7.5-11.1); PLATELET COUNT 157 K/MM3 (134-434); RBC 2.88 M/mm3 (4.00-5.60); RDW 17.3 % (11.9-15.9)
[2021-02-08 10:16] LABS: POTASSIUM 4.2 mmol/L (3.5-5.1)
[2021-02-08 10:19] LABS: CALCIUM 8.6 mg/dL (8.5-10.1); MAGNESIUM 2.2 mg/dL (1.8-2.4)
[2021-02-08 10:22] LABS: CREATININE 1.3 mg/dL (0.55-1.3)
[2021-02-08 10:23] LABS: BILIRUBIN,TOTAL 0.5 mg/dL (0.2-1); TOT PROT 5.8 g/dl (6.4-8.2)
[2021-02-08] MEDS: METOPROLOL TARTRATE 25 MG TABLET (FP) GT SCH ×3 (11:45→21:55)
[2021-02-08] MEDS: ZINC SULFATE 220 MG CAPSULE (FP) GT SCH (11:46)
[2021-02-08] MEDS: FERROUS SULFATE 220 MG/5 ML ELIXIR GT SCH ×2 (11:46→21:53)
[2021-02-08] MEDS: ASPIRIN 81 MG CHEWABLE TABLETS GT SCH (11:46)
[2021-02-08] MEDS: AMINO ACIDS/PROTEIN HYDROLYS 30 ML LIQUID.PKT PEG SCH (11:46)
[2021-02-08] MEDS: FAMOTIDINE 40 MG/5 ML ORAL SUSPENSION NR SCH ×2 (11:47→21:53)
[2021-02-08] MEDS: COLLAGENASE CLOSTRIDIUM HIST. 30 GRAMS TUBE TP SCH (11:47)
[2021-02-08] MEDS: Lacosamide 50 MG/5 ML ORAL SOLUTION UNIT CUPS GT SCH ×2 (11:47→21:55)
[2021-02-08 20:24] VITALS: BP 103/49; PULSE 69; TEMP 98.2
[2021-02-08] MEDS: SENNOSIDES 8.8 MG/5 ML BULK BOTTLE PO SCH (21:55)
[2021-02-08] MEDS: ATORVASTATIN CA 80 MG TABLET (FP) GT SCH (21:55)
== END 2021-02-08 22:35 | DRG 291 ==
LOC: JER 13:16 → JERBED 20:02 → J5S 01-27 03:18
PROVIDERS: ADMIT Internal Medicine; ATTEND Internal Medicine
PROC: 5A1955Z Respiratory Ventilation, Greater than 96 Consecutive Hours (ICD-10-PCS; principal; 2021-01-26)
PROC: 0BJ08ZZ Inspection of Tracheobronchial Tree, Via Natural or Artificial Opening Endoscopic (ICD-10-PCS; 2021-02-07)
PROC: 0B21XFZ Change Tracheostomy Device in Trachea, External Approach (ICD-10-PCS; 2021-02-07)
PROC: 5A1D70Z Performance of Urinary Filtration, Intermittent, Less than 6 Hours Per Day (ICD-10-PCS; 2021-02-08)
DX: I13.2 Hypertensive heart and chronic kidney disease with heart failure and with stage 5 chronic kidney disease, or end stage renal disease (principal); N18.6 End stage renal disease; J96.11 Chronic respiratory failure with hypoxia; I50.22 Chronic systolic (congestive) heart failure; Z99.11 Dependence on respirator [ventilator] status; I69.351 Hemiplegia and hemiparesis following cerebral infarction affecting right dominant side; J96.12 Chronic respiratory failure with hypercapnia; J95.03 Malfunction of tracheostomy stoma; R26.9 Unspecified abnormalities of gait and mobility; L89.152 Pressure ulcer of sacral region, stage 2; R29.6 Repeated falls; Z93.1 Gastrostomy status; Z93.0 Tracheostomy status; E86.0 Dehydration; D63.1 Anemia in chronic kidney disease; Z89.612 Acquired absence of left leg above knee; G47.33 Obstructive sleep apnea (adult) (pediatric); E78.5 Hyperlipidemia, unspecified; K21.9 Gastro-esophageal reflux disease without esophagitis; I73.9 Peripheral vascular disease, unspecified; I50.9 Heart failure, unspecified; E87.70 Fluid overload, unspecified; I48.91 Unspecified atrial fibrillation; G40.909 Epilepsy, unspecified, not intractable, without status epilepticus; R33.9 Retention of urine, unspecified; I25.10 Atherosclerotic heart disease of native coronary artery without angina pectoris; E11.9 Type 2 diabetes mellitus without complications; I95.1 Orthostatic hypotension; Y83.9 Surgical procedure, unspecified as the cause of abnormal reaction of the patient, or of later complication, without mention of misadventure at the time of the procedure
CPT/HCPCS: 36415; 36600; 70450-TC; 70486-TC; 71045-TC-FY; 71250-TC; 72125-TC; 72128-TC; 72131-TC; 74018-TC-FY; 74177-TC; 80048; 80053; 81003; 82803; 82962; 83735; 84100; 85025; 85027; 85610; 85730; 86704; 86706; 86707; 86708; 86709; 86803; 87040; 87070; 87077; 87086; 87186; 87205; 87340; 93005; 93010; 93306-TC; 93971; 94002; 94640; 97161-GP; 99285-25; C9803; J0131; Q5106; Q9967; U0003; U0005